=== PATIENT | male | born 1960 | race Hispanic/Latino ===

== ENCOUNTER → 2018-03-15 | Outpatient (CLI) | payer MEDICARE ==
[~2018-03-15] MED LIST: AMLODIPINE BESY10 MG PO; CEFAZOLIN SOD 1 GM VIAL ONE; CLONIDINE HCL0.2 MG PO; GABAPENTIN100 MG PO; LANTUS 3ML100 UNITS/ SQ; LIDOCAINE 1% W/EPINEPHRINE 20 ML VIAL ONE; METOPROLOL SUCC50 MG PO; MUPIROCIN 2% OINT 22 GM TUBE ONE; PRAVASTATIN SOD40 MG PO; SODIUM CHLORIDE 0.9% 500ML 500 ML ONE; [UNRECOGNIZED DRUG - OTHER] PO
[2018-03-15 13:02] LABS: BASOPHILS % 0.8 % (0.0-1.0); EOSINOPHILS # (AUTO) 0.4 (0.0-0.4); EOSINOPHILS % 7.2 % (0.0-6.0); HEMATOCRIT 36.6 % (38.2-49.6); HEMOGLOBIN 11.4 g/dL (14.0-18.0); LYMPHOCYTES # (AUTO) 1.2 (1.0-3.2); LYMPHOCYTES % 24.8 % (18.0-39.1); MEAN CORPUSCULAR HEMOGLOBIN 27.6 pg (28-32); MEAN CORPUSCULAR HGB CONC 31.1 g/dL (31-35); MEAN CORPUSCULAR VOLUME 88.6 fL (81-99); MONOCYTES # (AUTO) 0.5 (0.2-0.8); NEUTROPHILS # (AUTO) 2.9 (2.1-6.9); PLATELET COUNT 221 x10e3/uL (140-360); RED BLOOD COUNT 4.13 x10e6/uL (4.3-5.7); RED CELL DISTRIBUTION WIDTH 15.4 % (11.7-14.4)
[2018-03-15 13:37] LABS: INR 1.21; PROTHROMBIN TIME 14.4 seconds (11.9-14.5)
[2018-03-15 13:39] LABS: PARTIAL THROMBOPLASTIN TIME 38.3 seconds (23.8-35.5)
[2018-03-15 13:43] LABS: ANION GAP 19.9 mmol/L (8-16); CALCIUM 8.6 mg/dL (8.4-10.2); CREATININE, SERUM 8.31 mg/dL (0.72-1.25); POTASSIUM 5.9 mmol/L (3.5-5.1)
--- OUTSIDE RECORDS SUMMARY | 2018-03-17 05:12 | XMS REPORT | Clinical Summary ---
Author Author JULISA [facility] Address Unknown Phone Unavailable Care Team Providers Care Performance Tester Name Role Phone PCP Unavailable Allergies Active Allergy Reactions Severity Noted Date Comments No Known Drug Allergies 03/27/2016 Current Medications Prescription Sig. Disp. Refills Start End Date Status Date cloNIDine HCl (CATAPRES) Take 0.2 mg by mouth 3 Active 0.2 MG tablet (three) times daily. metoprolol (TOPROL-XL) 50 Take 50 mg by mouth 2 Active MG 24 hr tablet (two) times daily. amLODIPine (NORVASC) 10 Take 10 mg by mouth Active MG tablet daily. cinacalcet (SENSIPAR) 90 Take 90 mg by mouth Active MG tablet daily. gabapentin (NEURONTIN) Take 600 mg by mouth 3 Active 600 MG tablet (three) times daily. calcium acetate (PHOSLO) Take 667 mg by mouth 3 Active 667 mg capsule (three) times daily with meals. azithromycin (ZITHROMAX) Take 1 tablet (250 mg 6 tablet 0 12/04/19 12/09/19 250 MG tablet total) by mouth daily for 18 18 5 days Take first 2 tablets together, then 1 every day until finished.. Active Problems Not on file Encounters Date Type Specialty Care Team Description 12/04/2017 Emergency Emergency Medicine Emre Jones, Cough (Primary Dx);ESRD - MD on dialysis 12/05/2017 ([facility]);Hypertensive urgency after 03/16/2017 Social History Tobacco Use Types Packs/Day Years Used Date Never Assessed Sex Assigned at Date Recorded Not on file Last Filed Vital Signs Vital Sign Reading Time Taken Blood Pressure 177/67 12/05/2017 12:35 AM [employer]NAGER [employer] Pulse 84 12/05/2017 12:35 AM MANA[employer] Temperature 37.1 C (98.7 F) 12/04/2017 11:19 PM MANAGER [employer] Respiratory Rate 20 12/05/2017 12:10 AM MANAGER [employer]CHANGE Oxygen Saturation 92% 12/05/2017 12:35 AM MANAGER [employer]CH[employer] Inhaled Oxygen - - Concentration Weight 81 kg (178 lb 9.2 oz) 12/04/2017 8:47 PM MANAGER [employer]CH[employer] Height 165.1 cm (5' 5") 12/04/2017 8:46 PM MANAGER [employer] Body Mass Index 29.72 12/04/2017 8:47 PM MANAGER EXCHANGE Plan of Treatment Not on file Results * CBC with platelet count + automated diff (12/04/2017 9:00 PM) Component Value Ref Range WBC 5.1 3.5 - 10.5 K/ L RBC 3.71 (L) 4.63 - 6.08 M/ L Hemoglobin 10.8 (L) 13.7 - 17.5 GM/DL Hematocrit 34.1 (L) 40.1 - 51.0 % MCV 91.9 79.0 - 92.2 fL MCH 29.1 25.7 - 32.2 pg MCHC 31.7 (L) 32.3 - 36.5 GM/DL RDW 15.3 (H) 11.6 - 14.4 % Platelets 233 150 - 450 K/CU MM MPV 10.2 9.4 - 12.4 fL nRBC 0 0 - 0 /100 WBC % Neutros 69 % % Lymphs 16 % % Monos 8 % % Eos 7 % % Baso 0 % # Neutros 3.54 1.78 - 5.38 K/ L # Lymphs 0.80 (L) 1.32 - 3.57 K/ L # Monos 0.41 0.30 - 0.82 K/ L # Eos 0.34 0.04 - 0.54 K/ L # Baso 0.02 0.01 - 0.08 K/ L Immature 0 0 - 1 % Granulocytes-Relative Specimen Performing Laboratory Blood - Arm, Right [address] [address] * CBC with platelet count + automated diff (12/04/2017 9:00 PM) Specimen Performing Laboratory Blood Narrative The following orders were created for panel order CBC with platelet count + automated diff. Procedure Abnormality Status --------- - ------ CBC with platelet count ...[[id number]]AbnormalFinal result Please view results for these tests on the individual orders. * Comprehensive metabolic panel (12/04/2017 9:00 PM) Component Value Ref Range Protein, Total 8.6 (H) 6.0 - 8.3 gm/dL Albumin 4.4 3.5 - 5.0 g/dL Alkaline Phosphatase 207 (H) 40 - 150 U/L Total Bilirubin 0.5 0.2 - 1.2 mg/dL Sodium 136 136 - 145 meq/L Potassium 4.4 3.5 - 5.1 meq/L Chloride 94 (L) 98 - 107 meq/L CO2 17 (L) 22 - 29 meq/L BUN 34 (H) 7 - 21 mg/dL Creatinine 8.94 (H) 0.57 - 1.25 mg/dL Glucose 181 (H) 70 - 105 mg/dL Calcium 8.6 8.4 - 10.2 mg/dL AST 8 5 - 34 U/L ALT 9 6 - 55 U/L EGFR 6Comment: ESTIMATED GFR IS NOT ACCURATE mL/min/1.73 sq m CREATININE CLEARANCE IN PREDICTING GLOMERULAR FILTRATION RATE. ESTIMATED GFR IS NOT APPLICABLE FOR DIALYSIS PATIENTS. Specimen Performing Laboratory Blood - Arm, [place] [address] * XR chest 2 views (12/04/2017 8:58 PM) Specimen Performing Laboratory GE RIS Narrative FINAL REPORT INDICATION: COUGH COMPARISON: April 25, 2009 TECHNIQUE: Frontal and lateral views of the chest. FINDINGS: Lungs and pleura: Clear lungs. No effusion. Heart and mediastinum: Normal heart size. Unremarkable mediastinal contours. Osseous structures: No acute abnormality. Additional findings: None. IMPRESSION: No acute intrathoracic abnormality. Signed: JR Borrero Robert MD Report Verified Date/Time:12/04/2017 21:14:23 Reading Location: [address] Reading Room Procedure Note Interface, External Ris In - 12/04/2017 9:16 PM MANAGER EXCHANGE FINAL REPORT INDICATION: COUGH COMPARISON: April 25, 2009 TECHNIQUE: Frontal and lateral views of the chest. FINDINGS: Lungs and pleura: Clear lungs. No effusion. Heart and mediastinum: Normal heart size. Unremarkable mediastinal contours. Osseous structures: No acute abnormality. Additional findings: None. IMPRESSION: No acute intrathoracic abnormality. Signed: JR Borrero Robert MD Report Verified Date/Time: 12/04/2017 21:14:23 Reading Location: [address] Reading Room * Influenza A H1N1 PCR (12/04/2017 8:56 PM) Component Value Ref Range Influenza A RNA Not Detected Not Detected, Inconclusive Novel H1N1 RNA Not Detected Not Detected, Inconclusive Specimen Performing Laboratory Nasal - Nasopharyngeal [facility] [address] [place] [address] Narrative These assays were performed by real-time RT-PCR (community health coordinator-PCR) utilizing fluorogenic hydrolysis probe technology for the detection of human Influenza A viruses and the differential detection of novel H1N1 Influenza virus in respiratory specimens. The test is composed of (1) an RNA extraction from patient specimen, and (2) community health coordinator-PCR amplification and detection with human Influenza A and novel [id number] primers and probes. A well-conserved region of the Influenza A matrix gene is targeted in one set of reactions to identify both seasonal Influenza A and novel H1N1 Influenza virus in the specimen.In addition, a specific region of the hemagglutinin gene is targeted to differentiate the novel H1N1 virus from the seasonal human influenza. An internal control is used to confirm PCR amplification.Genetic variation and other factors can affect the accuracy of nucleic acid testing; therefore, the results should be interpreted in light of clinical data. This test was developed and its performance characteristics determined by the [facility] Pathology Department, Section of Molecular Pathology.It has not been cleared or approved by the U.S. Food and Drug Administration (FDA).Since FDA approval is not required for clinical use of the test, validation was done as required by The Clinical Laboratory Amendments of 1988. These assays were performed by real-time RT-PCR (community health coordinator-PCR) utilizing fluorogenic hydrolysis probe technology for the detection of human Influenza A viruses and the differential detection of novel H1N1 Influenza virus in respiratory specimens. The test is composed of (1) an RNA extraction from patient specimen, and (2) community health coordinator-PCR amplification and detection with human Influenza A and novel [id number] primers and probes. A well-conserved region of the Influenza A matrix gene is targeted in one set of reactions to identify both seasonal Influenza A and novel H1N1 Influenza virus in the specimen.In addition, a specific region of the hemagglutinin gene is targeted to differentiate the novel H1N1 virus from the seasonal human influenza. An internal control is used to confirm PCR amplification.Genetic variation and other factors can affect the accuracy of nucleic acid testing; therefore, the results should be interpreted in light of clinical data. This test was developed and its performance characteristics determined by the [facility] Pathology Department, Section of Molecular Pathology.It has not been cleared or approved by the U.S. Food and Drug Administration (FDA).Since FDA approval is not required for clinical use of the test, validation was done as required by The Clinical Laboratory Amendments of 1988. * Rapid Influenza A&B Screen (12/04/2017 8:56 PM) Component Value Ref Range Rapid Influenza A Antigen Negative Negative, Inconclusive Rapid influenza B Antigen Negative Negative, Inconclusive Specimen Performing Laboratory Nasal - Nasopharyngeal [facility] [address] [place] [address] after 03/16/2017
--- OUTSIDE RECORDS SUMMARY | 2018-03-17 05:12 | XMS REPORT ---
Author [facility] Address Unknown Phone Unavailable Care Team Providers Care Crew Leader Name Role Phone UNKNOWN, REFFERING PP Unavailable MATIAS FERNANDEZ M.D. Unavailable Unavailable ANTONI KIMBLE Unavailable Unavailable Problems This patient has no known problems. Allergies, Adverse Reactions, Alerts This patient has no known allergies or adverse reactions. Medications This patient has no known medications. Results Test Description Test Time Test Comments Text Results Atomic Results Result Comments POC Glucose, Blood 2017-12-22 16:32:00 POC Glucose (test code=POCGLUC) 115 mg/dL 70-115 If you consider your patient critically ill, the Jace Accu-Chek InformII metershould not be used for Glucose determinations.Draw a venous Glucose and send to the Main Lab for Analysis. POC Glucose, [id number] 11:17:00* Test Item Value Reference Range Comments POC Glucose (test code=POCGLUC) 263 mg/dL 70-115 If you consider your patient critically ill, the Jace Accu-Chek InformII metershould not be used for Glucose determinations.Draw a venous Glucose and send to the Main Lab for Analysis. POC Glucose, [id number] 08:49:00* Test Item Value Reference Range Comments POC Glucose (test code=POCGLUC) 108 mg/dL 70-115 If you consider your patient critically ill, the Jace Accu-Chek InformII metershould not be used for Glucose determinations.Draw a venous Glucose and send to the Main Lab for Analysis. POC Glucose, [id number] 20:33:00* Test Item Value Reference Range Comments POC Glucose (test code=POCGLUC) 204 mg/dL 70-115 Notify RN or MDIf you consider your patient critically ill, the Jace Accu-Chek InformII metershould not be used for Glucose determinations.Draw a venous Glucose and send to the Main Lab for Analysis. POC Glucose, [id number] 16:25:00* Test Item Value Reference Range Comments POC Glucose (test code=POCGLUC) 145 mg/dL 70-115 If you consider your patient critically ill, the Jace Accu-Chek InformII metershould not be used for Glucose determinations.Draw a venous Glucose and send to the Main Lab for Analysis. POC Glucose, [id number] 11:28:00* Test Item Value Reference Range Comments POC Glucose (test code=POCGLUC) 290 mg/dL 70-115 If you consider your patient critically ill, the Jace Accu-Chek InformII metershould not be used for Glucose determinations.Draw a venous Glucose and send to the Main Lab for Analysis. POC Glucose, [id number] 07:49:00* Test Item Value Reference Range Comments POC Glucose (test code=POCGLUC) 114 mg/dL 70-115 If you consider your patient critically ill, the Jace Accu-Chek InformII metershould not be used for Glucose determinations.Draw a venous Glucose and send to the Main Lab for Analysis. CK [id number] 07:43:00* Test Item Value Reference Range Comments CK (test code=CK) n/a U/L 39-308 CKMB (test code=CKMB) 2.4 ng/mL 0.0-4.9 CKMB% (test code=CKMBP) n/a % 0.0-3.4 Hep B Surface [id number] 07:40:00* Test Item Value Reference Range Comments Hep Bs Ab (test code=HBSAB) Reactive Non-Reactive Reactive Hepatitis B Surface antibody indicates previous Hepatitis Binfection or administration of Hepatitis B vaccine. Presence ofHepatitis B Surface antibody without presence of Hepatitis B Surfaceantigen is evidence of immunity. Hep B Core [id number] 07:14:00* Test Item Value Reference Range Comments HBC Total (test code=HBCAB) Nonreactive Non-Reactive Hepatitis Acute [id number] 07:04:00* Test Item Value Reference Range Comments Hep Bs Ag (test code=HBSAG) Nonreactive Non-Reactive Hep C Ab (test code=HCAB) Nonreactive Non-Reactive A Reactive result may indicate a past or present HCV infection orpossibly a carrier state. It is not diagnostic of Hepatitis C.However, a patient with a repeatedly Reactive result should beconsidered infectious. Reactive for HCV antibody by EIA screeningshould be confirmed by a supplemental test. Hepatitis A IgM (test code=HAVM) Nonreactive Non-Reactive Hep B Core IgM (test code=HBCABM) Nonreactive Non-Reactive Troponin [id number] 06:47:00* Test Item Value Reference Range Comments Troponin T (test code=ZEUS) 0.075 ng/mL 0.000-0.090 Basic Metabolic [id number] 06:46:00* Test Item Value Reference Range Comments Sodium (test code=NA) 135 mmol/L 135-145 Potassium (test code=K) 4.8 mmol/L 3.5-5.1 Chloride (test code=CL) 91 mmol/L 98-105 Carbon Dioxide (test code=CO2) 22 mmol/L 22-29 Glucose (test code=GLU) 185 mg/dL 70-115 Blood Urea Nitrogen (test code=BUN) 56 mg/dL 6-20 Creatinine (test code=CREAT) 8.8 mg/dL 0.7-1.2 Calcium (test code=CA) 8.5 mg/dL 8.3-10.5 BUN/Creatinine Ratio (test code=BCRATIO) 6.4 Anion Gap (test code=AGAP) 22 mmol/L 7-16 Estimated GFR (test code=GFR) 7 mL/min/1.73m2 eGFR (estimated Glomerular Filtration Rate) is an estimated value,calculated from the patient's serum creatinine using the MDRD equation.It is NOT the patient's actual GFR. The eGFR provides a more clinicallyuseful measure of kidney disease than serum creatinine alone.This calculation takes sex and race into account, if the informationis provided. If the race is not provided, and the patient isAfrican- Citizen [place], multiply by 1.212. If sex is not provided, and thepatient is female, multiply by 0.742. Results for patients <18 years ofage have not been validated by the MDRD study and should be interpretedwith caution.eGFR Result Interpretation:eGFR > or=60 is in the Normal RangeeGFR < 60 may mean kidney diseaseeGFR < 15 may mean kidney failureRanges recommended by the National Kidney Foundation,http://nkdep.nih.gov Lipid [id number] 06:46:00* Test Item Value Reference Range Comments Cholesterol (test code=CHOL) 102 mg/dL 0-200 Triglycerides (test code=TRIG) 184 mg/dL 9-200 HDL (test code=HDL) 32 mg/dL 40-60 Chol/HDL (test code=CHOLPHDL) 3.2 Ratio 0.0-5.0 LDL, Calculated (test code=LDLC) 33 mg/dL 0-130 (NOTE)RISK OF HEART DISEASEPublished by Citizen Of [place] Heart AssociationAnalyte Optimal Boderline Increased RiskCHOL <200 200-239 >240TRIG <150 150-199 >200HDL Male: >60 <40HDL Female: >60 <50LDL <100 130- 159 >160LDL NEAR OPTIMAL IS 100-129 VLDL (test code=VLDL) 37 mg/dL 5-40 LDL/HDL (test code=LDLPHDL) 1 CK [id number] 01:59:00* Test Item Value Reference Range Comments CK (test code=CK) na U/L 39-308 CKMB (test code=CKMB) 2.5 ng/mL 0.0-4.9 CKMB% (test code=CKMBP) 0.0 % 0.0-3.4 Troponin [id number] 01:16:00* Test Item Value Reference Range Comments Troponin T (test code=ZEUS) 0.065 ng/mL 0.000-0.090 Comprehensive Metabolic [id number] 13:35:00* Test Item Value Reference Range Comments Sodium (test code=NA) 135 mmol/L 135-145 Potassium (test code=K) 5.8 mmol/L 3.5-5.1 Chloride (test code=CL) 92 mmol/L 98-105 Carbon Dioxide (test code=CO2) 23 mmol/L 22-29 Glucose (test code=GLU) 155 mg/dL 70-115 Blood Urea Nitrogen (test code=BUN) 53 mg/dL 6-20 Creatinine (test code=CREAT) 9.9 mg/dL 0.7-1.2 Calcium (test code=CA) 8.7 mg/dL 8.3-10.5 Prot Total (test code=TP) 7.8 g/dL 6.4-8.3 Albumin (test code=ALB) 4.2 g/dL 3.5-5.2 A/G Ratio (test code=AGRATIO) 1.2 Ratio Globulin (test code=GLOB) 3.6 2.9-3.1 Bili Total (test code=TBIL) 0.3 mg/dL 0.1-0.9 Alk Phos (test code=APHOS) 188 U/L 40-129 AST (test code=AST) 10 U/L 1-40 ALT (test code=ALT) 8 U/L 1-41 BUN/Creatinine Ratio (test code=BCRATIO) 5.4 Anion Gap (test code=AGAP) 20 mmol/L 7-16 Estimated GFR (test code=GFR) 6 mL/min/1.73m2 eGFR (estimated Glomerular Filtration Rate) is an estimated value,calculated from the patient's serum creatinine using the MDRD equation.It is NOT the patient's actual GFR. The eGFR provides a more clinicallyuseful measure of kidney disease than serum creatinine alone.This calculation takes sex and race into account, if the informationis provided. If the race is not provided, and the patient isAfrican- Citizen [place], multiply by 1.212. If sex is not provided, and thepatient is female, multiply by 0.742. Results for patients <18 years ofage have not been validated by the MDRD study and should be interpretedwith caution.eGFR Result Interpretation:eGFR > or=60 is in the Normal RangeeGFR < 60 may mean kidney diseaseeGFR < 15 may mean kidney failureRanges recommended by the National Kidney Foundation,http://nkdep.nih.gov Troponin [id number] 13:23:00* Test Item Value Reference Range Comments Troponin T (test code=ZEUS) 0.056 ng/mL 0.000-0.090 [id number] 13:23:00* Test Item Value Reference Range Comments NT ProBnp (test code=PBNP) >39549 pg/mL 0-124 Prothrombin [id number] 13:20:00* Test Item Value Reference Range Comments PT (test code=PT) 11.90 seconds 9.78-13.35 INR (test code=INR) 1.04 Ratio 0.6-1.2 CBC with [id number] 13:18:00* Test Item Value Reference Range Comments WBC (test code=WBC) 11.7 K/cumm 4.4-10.5 RBC (test code=RBC) 3.39 M/cumm 4.10-5.70 Hemoglobin (test code=HGB) 9.4 gm/dL 13.4-17.4 Hematocrit (test code=HCT) 31.4 % 38.7-52.0 MCV (test code=MCV) 92.6 fL 80-100 MCH (test code=MCH) 27.8 pg 27.0-32.5 MCHC (test code=MCHC) 30.1 g/dL 32.0-37.5 RDW (test code=RDW) 16.2 % 11.5-14.5 Platelet Count (test code=PLTCT) 432 K/cumm 140-440 MPV (test code=MPV) 6.9 fL Diff Method (test code=DIFFM) Auto Neutrophil (test code=NEUT) 85.4 % 36-70 Lymphocyte (test code=LYMPH) 9.0 % 12-44 Monocyte (test code=MONO) 2.5 % 0-11 Eosinophil (test code=EOS) 2.6 % 0-7 Basophil (test code=BASO) 0.4 % 0-2 Neutro Abs (test code=ANEUT) 10.0 K/cumm 1.6-7.4 Lymph Abs (test code=ALYMPH) 1.1 K/cumm 0.5-4.6 [place] Abs (test code=AMONO) 0.3 K/cumm 0.0-1.2 Eos Abs (test code=AEOS) 0.30 K/cumm 0.00-0.74 Baso Abs (test code=ABASO) 0.1 K/cumm 0.00-0.21 Hypochromic (test code=HYPO) Slight XR CHEST 1 [id number] 12:18:27EXAM: CHEST ONE VIEWINDICATION: Chest painCOMPARISON: None availableTECHNIQUE: AP view of the chest.FINDINGS: The cardiomediastinal silhouette is normal. There are diffuseinterstitial and airspace opacities throughout both lungs consistentwith pulmonary edema. There are increased density in the both lung baseslikely representing small bilateral pleural effusions. The osseousstructures are unremarkable.IMPRESSION: Diffuse pulmonary edema and small bilateral pleural effusions. Asuperimposed infectious process is not excluded.LOCATION: [id number] A H1N1 [id number] 16:10:00* Test Item Value Reference Range Comments INFLUENZA A RNA (BEAKER) (test myqu=5304) Not Detected Not Detected, Inconclusive NOVEL H1N1 RNA (BEAKER) (test yyhy=0040) Not Detected Not Detected, Inconclusive These assays were performed by real-time RT-PCR (watch and clock maker and repairer-PCR) utilizing fluorogenic hydrolysis probe technology for the detection of human Influenza A viruses and the differential detection of novel H1N1 Influenza virus in respiratory specimens. The test is composed of (1) an RNA extraction from patient specimen, and (2) watch and clock maker and repairer-PCR amplification and detection with human Influenza A and novel A5H7-ntyhjswr primers and probes. A well-conserved region of the Influenza A matrix gene is targeted in one set of reactions to identify both seasonal Influenza A and novel H1N1 Influenza virus in the specimen. In addition, a specific region of the hemagglutinin gene is targeted to differentiate the novel H1N1 virus from the seasonal human influenza. An internal control is used to confirm PCR amplification. Genetic variation and other factors can affect the accuracy of nucleic acid testing; therefore, the results should be interpreted in light of clinical data. This test was developed and its performance characteristics determined by the [facility]ology Department, Section of Molecular Pathology. It has not been cleared or approved by the U.S. Food and Drug Administration (FDA). Since FDA approval is not required for clinical use of the test, validation was done as required by The Clinical Laboratory Amendments of 1988.These assays were performed by real-time RT-PCR (watch and clock maker and repairer-PCR) utilizing fluorogenic hydrolysis probe technology for the detection of human Influenza A viruses and the differential detection of novel H1N1 Influenza virus in respiratory specimens. The test is composed of (1) an RNA extraction from patient specimen, and (2) watch and clock maker and repairer-PCR amplification and detection with human Influenza A and novel D9N0-vkptoblm primers and probes. A well-conserved region of the Influenza A matrix gene is targeted in one set of reactions to identify both seasonal Influenza A and novel H1N1 Influenza virus in the specimen. In addition, a specific region of the hemagglutinin gene is targeted to differentiate the novel H1N1 virus from the seasonal human influenza. An internal control is used to confirm PCR amplification. Genetic variation and other factors can affect the accuracy of nucleic acid testing; therefore, the results should be interpreted in light of clinical data. This test was developed and its performance characteristics determined by the [facility], Section of Molecular Pathology. It has not been cleared or approved by the U.S. Food and Drug Administration ( FDA). Since FDA approval is not required for clinical use of the test, validation was done as required by The Clinical Laboratory Amendments of 1988.COMPREHENSIVE METABOLIC [id number] 21:29:00* Test Item Value Reference Range Comments TOTAL PROTEIN (BEAKER) (test lryi=158) 8.6 gm/dL 6.0-8.3 ALBUMIN (BEAKER) (test jeww=8250) 4.4 g/dL 3.5-5.0 ALKALINE PHOSPHATASE (BEAKER) (test cgao=484) 207 U/L 40-150 BILIRUBIN TOTAL (BEAKER) (test qpnm=243) 0.5 mg/dL 0.2-1.2 SODIUM (BEAKER) (test kxcg=352) 136 meq/L 136-145 POTASSIUM (BEAKER) (test aavj=010) 4.4 meq/L 3.5-5.1 CHLORIDE (BEAKER) (test fykh=309) 94 meq/L 98-107 CO2 (BEAKER) (test ztps=310) 17 meq/L 22-29 BLOOD UREA NITROGEN (BEAKER) (test wpvq=166) 34 mg/dL 7-21 CREATININE (BEAKER) (test emsq=171) 8.94 mg/dL 0.57-1.25 GLUCOSE RANDOM (BEAKER) (test lwvb=106) 181 mg/dL 70-105 CALCIUM (BEAKER) (test lulv=538) 8.6 mg/dL 8.4-10.2 AST (SGOT) (BEAKER) (test bqxw=703) 8 U/L 5-34 ALT (SGPT) (BEAKER) (test ascl=019) 9 U/L 6-55 EGFR (BEAKER) (test qttg=4798) 6 mL/min/1.73 sq m ESTIMATED GFR IS NOT ACCURATE CREATININE CLEARANCE IN PREDICTING GLOMERULAR FILTRATION RATE. ESTIMATED GFR IS NOT APPLICABLE FOR DIALYSIS PATIENTS. RAPID INFLUENZA A&B [id number] 21:26:00* Test Item Value Reference Range Comments RAPID INFLUENZA A AG (BEAKER) (test dmpp=5232) Negative Negative, Inconclusive RAPID INFLUENZA B AG (BEAKER) (test bczy=4929) Negative Negative, Inconclusive RAD, CHEST, 2 [id number] 21:14:00Reason for exam:->COUGHFINAL REPORT INDICATION: COUGH COMPARISON: April 25, 2009 TECHNIQUE: Frontal and lateral views of the chest. FINDINGS: Lungs and pleura: Clear lungs. No effusion.Heart and mediastinum: Normal heart size. Unremarkable mediastinal contours.Osseous structures: No acute abnormality.Additional findings: None. IMPRESSION: No acute intrathoracic abnormality. Signed: JR Hopkins Robert MDReport Verified Date/Time: 12/04/2017 21:14:23 Reading Location: [address] Reading Room W/PLT COUNT & AUTO [id number] 21:07:00* Test Item Value Reference Range Comments WHITE BLOOD CELL COUNT (BEAKER) (test airu=205) 5.1 K/ L 3.5-10.5 RED BLOOD CELL COUNT (BEAKER) (test kksk=796) 3.71 M/ L 4.63-6.08 HEMOGLOBIN (BEAKER) (test xlaq=483) 10.8 GM/DL 13.7-17.5 HEMATOCRIT (BEAKER) (test smkk=279) 34.1 % 40.1-51.0 MEAN CORPUSCULAR VOLUME (BEAKER) (test lgvg=085) 91.9 fL 79.0-92.2 MEAN CORPUSCULAR HEMOGLOBIN (BEAKER) (test cdsf=993) 29.1 pg 25.7-32.2 MEAN CORPUSCULAR HEMOGLOBIN CONC (BEAKER) (test xuce=113) 31.7 GM/DL 32.3- 36.5 RED CELL DISTRIBUTION WIDTH (BEAKER) (test jxft=195) 15.3 % 11.6-14.4 PLATELET COUNT (BEAKER) (test xpmo=513) 233 K/CU MM 150-450 MEAN PLATELET VOLUME (BEAKER) (test oaxm=709) 10.2 fL 9.4-12.4 NUCLEATED RED BLOOD CELLS (BEAKER) (test kezc=457) 0 /100 WBC 0-0 NEUTROPHILS RELATIVE PERCENT (BEAKER) (test wswf=408) 69 % LYMPHOCYTES RELATIVE PERCENT (BEAKER) (test nkqf=239) 16 % MONOCYTES RELATIVE PERCENT (BEAKER) (test pmar=340) 8 % EOSINOPHILS RELATIVE PERCENT (BEAKER) (test rvfu=449) 7 % BASOPHILS RELATIVE PERCENT (BEAKER) (test znka=723) 0 % NEUTROPHILS ABSOLUTE COUNT (BEAKER) (test nyiw=632) 3.54 K/ L 1.78-5.38 LYMPHOCYTES ABSOLUTE COUNT (BEAKER) (test qolk=352) 0.80 K/ L 1.32-3.57 MONOCYTES ABSOLUTE COUNT (BEAKER) (test hrtl=930) 0.41 K/ L 0.30-0.82 EOSINOPHILS ABSOLUTE COUNT (BEAKER) (test apkw=884) 0.34 K/ L 0.04-0.54 BASOPHILS ABSOLUTE COUNT (BEAKER) (test xtjk=159) 0.02 K/ L 0.01-0.08 IMMATURE GRANULOCYTES-RELATIVE PERCENT (BEAKER) (test gvxh=9936) 0 % 0-1
== END ==
LOC: LAB 05:00 → OR 03-17 05:10 → EDSTATUS 03-17 07:00
PROVIDERS: ATTEND Plastic Surgery
DX: Z01.818 Encounter for other preprocedural examination (principal); C43.31 Malignant melanoma of nose; Z53.8 Procedure and treatment not carried out for other reasons
CPT/HCPCS: 36415; 80048; 82948; 84132; 85025; 85610; 85730; J0690; J7040